=== PATIENT | male | born 1955 | race Caucasian/White ===

== ENCOUNTER 2019-04-24 05:21 | Emergency (ER) | payer OTHER ==
[~2019-04-24] VITALS: Ht 175.3 cm; Wt 108.0 kg
[2019-04-24 05:21] VITALS: BP_SYST 146
--- NOTE | 2019-04-24 05:21 | NUR ---
Pt wheeled to bed 3 for evaluation, hooked to cont monitor
[2019-04-24] MEDS ORDERED: GLU500 PO (05:56)
[2019-04-24] MEDS ORDERED: PRO40 PO (05:56)
[2019-04-24] MEDS ORDERED: ATOR20TA64 PO (05:57)
[2019-04-24] MEDS ORDERED: DULO60CA41 PO (05:57)
[2019-04-24] MEDS ORDERED: LISI-600 PO (05:59)
[2019-04-24] MEDS ORDERED: MAGN400T10 PO (05:59)
[2019-04-24] MEDS ORDERED: TRAZ-250 PO (06:00)
[2019-04-24] MEDS ORDERED: GABA-533 PO (06:01)
--- NOTE | 2019-04-24 06:03 | NUR ---
Pt found asleep in bed, tried to wake him up to ask about his meds. Pt difficult to arouse, at bedside trying to wake him up. Pt woke up briefly, however altered, stated" where am I, what am I doing here, grabbing his left ear. Pt went back to sleep. ER made aware
--- NOTE | 2019-04-24 06:04 | NUR ---
Pt was still unresponsive, ER MD at bedside. YULISSA Benjamin started sternal rub
--- NOTE | 2019-04-24 06:05 | NUR ---
Pt becomes unresponsive x 10 seconds, no response with sternal rub. Pt regains consciousness and startled stating "where am I." Dr. Elizabeth and pts at bedside. Pt reoriented and reassured.
--- NOTE | 2019-04-24 06:05 | NUR ---
Dr. Elizabeth at bedside.
[2019-04-24] MEDS ORDERED: NPH,100V2 SQ (06:07)
--- NOTE | 2019-04-24 06:08 | NUR ---
# 18 gauge angiocath placed to RAC. Use of asceptic technique. Opsite placed over site. Blood return noted. Blood for lab drawn from site. Flushed with 10 cc of normal saline. No evidence of infiltration noted. Patient tolerated well.
--- NOTE | 2019-04-24 06:10 | NUR ---
Note shukri in EDM - 04/24/19 at 0625 by ELADIOJ Pts states that she heard a loud crash at about 0450 this AM and found pt on floor in between toilet and sink, going in and out of consciousness. Pt currently AAOx3 and states "the last thing I rememberis going to the bathroom
--- NOTE | 2019-04-24 06:10 | NUR ---
Pts states that she heard a loud crash at about 0450 this AM and found pt on floor in between toilet and sink, going in and out of consciousness. Pt currently AAOx3 and states "the last thing I remembers going to the bathroom and blacking out." Pt has superficial crescent lac beneath right eye brow, redness to right cheek, abrasion to posterior head. No visual deficits. Drift noted to LUE and LLE. See NIH. Pt also c/o "loud tinnitus" to both ears and a feeling of "something crawling in his left ear."
--- NOTE | 2019-04-24 06:20 | NUR ---
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
--- NOTE | 2019-04-24 06:29 | NUR ---
Pt returns from CT, placed to hospital monitor. Pt AAOx3, c/o dizziness with H/A 10/19. Denies N/V, no C/P or SOB.
[2019-04-24 06:43] LABS: BASOPHILS % (AUTO) 0.4 % (0.0-2.0); EOSINOPHILS # (AUTO) 0.1 K/uL (0.0-0.4); EOSINOPHILS % (AUTO) 1.3 % (0.0-4.0); HEMATOCRIT 39.3 % (36-54); HEMOGLOBIN 13.9 g/dL (14.0-18.0); LYMPHOCYTES # (AUTO) 1.6 K/uL (1.0-5.5); LYMPHOCYTES % (AUTO) 24.8 % (20.5-51.5); MEAN CORPUSCULAR HEMOGLOBIN 32 pg (27-31); MEAN CORPUSCULAR HGB CONC 35 % (32-36); MEAN CORPUSCULAR VOLUME 90 fL (79.0-98.0); MONOCYTES # (AUTO) 0.6 K/uL (0.0-1.0); MONOCYTES % (AUTO) 8.6 % (1.7-9.3); NEUTROPHILS # (AUTO) 4.2 K/uL (1.8-7.7); NEUTROPHILS % (AUTO) 64.9 % (40.0-70.0); PLATELET COUNT (AUTO) 144 K/uL (130-430); RED BLOOD CELL COUNT(AUTO) 4.39 MIL/uL (4.2-6.2); RED CELL DISTRIBUTION WIDTH 12.3 % (9.0-15.0); WHITE BLOOD COUNT (AUTO) 6.4 K/uL (4.8-10.8)
[2019-04-24] MEDS ORDERED: PRAZ1CAP5 PO (06:48)
[2019-04-24 06:57] LABS: ANION GAP 8 (5-15); CHLORIDE 99 mmol/L (98-107); CREATININE 0.91 mg/dL (0.55-1.30); GLUCOSE 214 mg/dL (70-99); POTASSIUM 4.1 mmol/L (3.5-5.1); SODIUM SERUM 134 mmol/L (136-145); UREA NITROGEN, BLOOD 14 mg/dL (8-21)
--- NOTE | 2019-04-24 06:57 | NUR ---
Medication reconciliation completed with information provided by patient. Any prior medication reconciliation on file was reviewed and corrected.
[2019-04-24 07:01] LABS: GFR AFRICAN AMERICAN 108 mL/min (>90)
[2019-04-24 07:10] LABS: ALANINE AMINOTRANSFERASE 43 U/L (12-78); ALBUMIN 3.5 g/dL (3.4-4.8); ASPARTATE AMINOTRANSFERASE 20 U/L (10-37); TOTAL BILIRUBIN 0.4 mg/dL (0.0-1.0)
--- NOTE | 2019-04-24 07:13 | NUR ---
Pt report given to YULISSA Camacho.
--- NOTE | 2019-04-24 07:15 | NUR ---
REPORT RECEIVED FROM EMI
[2019-04-24] MEDS ORDERED: LIDOCAINE 1% 10 MG/ML, 20 ML MDV INJ ONE (07:30)
--- NOTE | 2019-04-24 07:50 | NUR ---
Dr. Elizabeth at the bedside stitching the pt's right eye lac. Pt tolerating well
[2019-04-24] MEDS ORDERED: NACL 0.9% 1,000 ML IV ONE (08:15)
[2019-04-24 08:19] LABS: BILIRUBIN,URINE NEGATIVE (NEGATIVE); BLOOD, URINE NEGATIVE (NEGATIVE); CLARITY/URINE CLEAR (CLEAR); COLOR,URINE YELLOW (YELLOW); GLUCOSE,URINE NEGATIVE (NEGATIVE); KETONES,URINE NEGATIVE (NEGATIVE); LEUKOCYTE ESTERASE ,URINE NEGATIVE (NEGATIVE); NITRITE, URINE NEGATIVE (NEGATIVE); PROTEIN URINE NEGATIVE (NEGATIVE); UROBILINOGEN,URINE 0.2 (0.2-1.0)
[2019-04-24 08:39] LABS: BARBITURATE, URINE NEGATIVE (NEG <=200); BENZODIAZEPINE, URINE NEGATIVE (NEG <=150); CANNABINOID, URINE NEGATIVE (NEG <=50); COCAINE, URINE NEGATIVE (NEG <=150); METHAMPHETAMINES SCREEN,URINE NEGATIVE (NEG <=500); OPIATE, URINE NEGATIVE (NEG <=100); PHENCYCLIDINE SCREEN,URINE NEGATIVE (NEG <=25); UR TRICYCLIC ANTIDEPRESSANTS NEGATIVE (NEG <=300); URINE AMPHETAMINE NEGATIVE (NEG <=500); URINE METHADONE NEGATIVE (NEG <=200); URINE OXYCODONE SCREEN NEGATIVE (NEG <=100); URINE PROPOXYPHENE SCREEN NEGATIVE (NEG <=300)
--- NOTE | 2019-04-24 09:40 | NUR ---
PT COMFORTABLE IN BED, VSS NO DISTRESS NOTED
--- NOTE | 2019-04-24 10:00 | NUR ---
Patient given written and verbal discharge instructions and verbalizes understanding. ER MD discussed with patient the results and treatment provided. Patient in stable condition. ID arm band removed. IV catheter removed intact and dressing applied, no active bleeding. Rx of BACITRACIN given. Patient educated on pain management and to follow up with PMD. Pain Scale 0. Opportunity for questions provided and answered. Medication side effect fact sheet provided.
[2019-04-24 10:01] VITALS: BP_SYST 126
== END 2019-04-24 10:01 | disposition home or self-care (01) ==
LOC: SED 05:21
DX: S01.111A Laceration without foreign body of right eyelid and periocular area, initial encounter (principal); R55 Syncope and collapse; E86.0 Dehydration; I10 Essential (primary) hypertension; Z79.4 Long term (current) use of insulin; Z79.899 Other long term (current) drug therapy; W18.39XA Other fall on same level, initial encounter; Y93.89 Activity, other specified; Y92.091 Bathroom in other non-institutional residence as the place of occurrence of the external cause; Y99.8 Other external cause status
CPT/HCPCS: 12011; 36415; 70450; 71045; 80053; 80307; 81003; 82962; 84484; 85025; 85379; 93005; 96360; 99284; J2001; J7030; 96372